=== PATIENT | male | born 1980 | race Caucasian/White ===

== ENCOUNTER 2020-03-28 06:51 | Day surgery (SDC) | payer OTHER | END 2020-03-28 15:50 | disposition home or self-care (01) | LOC: CIR.AMB 06:51 | PROVIDERS: ATTEND Surgery | DX: N43.2 Other hydrocele (principal); Z20.828 Contact with and (suspected) exposure to other viral communicable diseases ==

== ENCOUNTER 2021-01-09 12:42 | Outpatient (CLI) | payer OTHER | END 2021-01-09 13:00 | disposition home or self-care (01) | LOC: LAB 12:42 | PROVIDERS: ATTEND Pediatrics Neonatal-Perinatal Medicine | DX: R05 Cough (principal); R50.9 Fever, unspecified; R06.02 Shortness of breath; Z03.818 Encounter for observation for suspected exposure to other biological agents ruled out ==